=== PATIENT | female | born 1985 | race Caucasian/White ===

== ENCOUNTER 2019-02-15 17:35 | Emergency (ER) | payer OTHER ==
[~2019-02-15] VITALS: Ht 162.5 cm; Wt 70.3 kg
[~2019-02-15 17:35] MED LIST: AMOXIL500 M1 PO; CEPHALEXIN500 M1 PO; IRON FERROUS S325 MG PO; MOTRIN600 MG PO; NASONEX0.05 MG/AC NS; PRENATAL1 TAB PO; SEPTDS PO; TORADOL10 MG PO
[2019-02-15 19:30] LABS: BILIRUBIN NEGATIVE (NEGATIVE); BLOOD 3+ (NEGATIVE); CLARITY SL CLOUDY (CLEAR); COLOR YELLOW (YELLOW); GLUCOSE NEGATIVE (NEGATIVE); KETONE NEGATIVE (NEGATIVE); LEUKO ESTERASE NEGATIVE (NEGATIVE); NITRITE NEGATIVE (NEGATIVE); UROBILINOGEN 0.2 E.U./dl (0.2-1.0)
[2019-02-15 19:47] LABS: BACTERIA TRACE; EPITHELIAL CELLS 0-2; RBC 31-40 rbc/hpf (0-2); WBC 0-2 wbc/hpf (0-5)
== END 2019-02-15 22:41 | disposition home or self-care (01) ==
LOC: ED 17:35
PROVIDERS: Emergency Medicine
DX: O02.0 Blighted ovum and nonhydatidiform mole (principal); Z88.6 Allergy status to analgesic agent; Z91.040 Latex allergy status; Z79.2 Long term (current) use of antibiotics; Z79.899 Other long term (current) drug therapy